=== PATIENT | male | born 1980 | race Caucasian/White ===

== ENCOUNTER → 2017-06-07 | Outpatient (CLI) | payer OTHER ==
[~2017-06-07] MED LIST: BUPR300T49 PO; CETI10TA24 PO; HYDR473S51 PO; IBUP200T64 PO; OMEP40CA6 PO; ROSU20TA PO
[2017-06-07 11:57] LABS: BASOPHILS # (AUTO) 0.04 x10^3/uL (0-0.1); BASOPHILS % (AUTO) 1 % (0-1); EOSINOPHILS # (AUTO) 0.22 x10^3/uL (0-0.4); EOSINOPHILS % (AUTO) 5 % (1-7); LYMPHOCYTES # (AUTO) 2.47 x10^3/uL (1-3.4); LYMPHOCYTES % (AUTO) 51 % (22-44); MD NO; MEAN CORPUSCULAR HEMOGLOBIN 29.5 pg (27.5-34.5); MEAN CORPUSCULAR HGB CONC 34.1 g/dL (33.2-36.2); MEAN CORPUSCULAR VOLUME 86.6 fL (81-97); MEAN PLATELET VOLUME 8.7 fL (7.4-10.4); MONOCYTES # (AUTO) 0.42 x10^3/uL (0.2-0.8); MONOCYTES % (AUTO) 9 % (2-9); NEUTROPHILS # (AUTO) 1.66 x10^3/uL (1.8-6.8); NEUTROPHILS % (AUTO) 35 % (42-75); PLATELET COUNT 191 x10^3/uL (130-400); RED BLOOD COUNT 5.21 x10^6/uL (4.38-5.82); RED CELL DISTRIBUTION WIDTH 13.5 % (9.4-14.8)
[2017-06-07 12:12] LABS: ALBUMIN 4.1 g/dL (3.4-5.0); ANION GAP 6 mmol/L (5-15); CALCIUM 8.7 mg/dL (8.5-10.1); CHLORIDE 108 mmol/L (98-107)
[2017-06-07 12:39] LABS: % IRON SATURATION 32 % (20-55); ALANINE AMINOTRANSFERASE 51 U/L (12-78); ALKALINE PHOSPHATASE 69 U/L (45-117); BILIRUBIN,TOTAL 0.7 mg/dL (0.2-1.0); CHOL/HDL RATIO 7.1; CHOLESTEROL, TOTAL 270 mg/dL (140-239); CREATININE 0.92 mg/dL (0.7-1.3); FOLATE LEVEL 18.5 ng/mL (3.1-17.5); HDL CHOL % 14 % (26-37); HDL CHOLESTEROL (DIRECT) 38 mg/dL (40-60); IRON LEVEL 108 mcg/dL (65-175); LDL CHOLESTEROL,CALCULATED 166 mg/dL (54-169); LDL/HDL RATIO 4.4 (0.5-3.0); PREALBUMIN 37.3 mg/dL (20.0-40.0); TOTAL IRON BINDING CAPACITY 335 mcg/dL (250-450); TRANSFERRIN 286 mg/dL (200-360); TRIGLYCERIDES 332 mg/dL (50-200); VLDL CHOLESTEROL 66 mg/dL (0-25)
== END | disposition home or self-care (01) ==
LOC: STAR 10:32
PROVIDERS: ATTEND Thoracic Surgery (Cardiothoracic Vascular Surgery)
DX: Z01.818 Encounter for other preprocedural examination (principal); E78.2 Mixed hyperlipidemia
CPT/HCPCS: 36415; 71020; 80053; 80061; 82306; 82607; 82728; 82746; 83540; 83550; 83970; 84134; 84425; 84466; 85025; 93005

== ENCOUNTER 2017-06-12 06:02 | Inpatient (IN) | payer OTHER ==
[~2017-06-12] VITALS: Ht 182.9 cm; Wt 127.1 kg
[~2017-06-12 06:02] MED LIST changes: -HYDR473S51 PO
[2017-06-12] MEDS ORDERED: BUPIVACAINE/PF 0.5% ONE (06:21)
[2017-06-12 06:59] VITALS: BP 132/89
[2017-06-12] MEDS ORDERED: LACTATED RINGERS 1,000 ML IV SCH ×2 (06:59→22:14)
[2017-06-12] MEDS ORDERED: FENTANYL PF 250 MCG/5ML ONE (07:20)
[2017-06-12] MEDS ORDERED: MIDAZOLAM 1 MG/ML, 2ML ONE (07:20)
[2017-06-12] MEDS ORDERED: SCOPOLAMINE PATCH, 1.5MG PATCH.TD72 TD ONE ×2 (07:20→07:30)
[2017-06-12] MEDS ORDERED: FLU VACC QS2017-18 (36MOS+) UP/PF 0.5 ML IM-VACC ONE (07:30)
[2017-06-12] MEDS ORDERED: DEXAMETHASONE 4 MG/ML, 1ML ONE ×2 (08:12)
[2017-06-12] MEDS ORDERED: ROCURONIUM 10 MG/ML,10ML ONE (08:17)
[2017-06-12] MEDS ORDERED: PROPOFOL 10 MG/ML, 20ML ONE (08:17)
[2017-06-12] MEDS ORDERED: MEPERIDINE/PF 25MG/0.5ML IVPush PRN (08:30)
[2017-06-12] MEDS ORDERED: LABETALOL 5MG/ML, 20ML IV PRN (08:30)
[2017-06-12] MEDS ORDERED: OXYcodone 5 MG/5 ML ORAL.SOL UDC PO PRN (08:30)
[2017-06-12] MEDS ORDERED: hydrALAzine 20 MG/ML, 1ML IV PRN (08:30)
[2017-06-12] MEDS ORDERED: ACETAMINOPHEN 325 MG TABLET PO PRN (08:30)
[2017-06-12] MEDS ORDERED: ONDANSETRON 2MG/ML, 2ML IVPush PRN ×2 (08:30→09:30)
[2017-06-12] MEDS ORDERED: PROMETHAZINE 25 MG/ML, 1ML IV PRN (08:30)
[2017-06-12] MEDS ORDERED: ONDANSETRON 2MG/ML, 2ML ONE ×2 (08:39)
[2017-06-12] MEDS ORDERED: HYDROmorphone 2 MG/ML, 1ML ONE (09:21)
[2017-06-12] MEDS ORDERED: FENTANYL PF 100 MCG/2ML ONE (09:21)
[2017-06-12] MEDS: FENTANYL PF 100 MCG/2ML IV PRN ×3 (09:26→10:00)
[2017-06-12] MEDS: HYDROmorphone 1 MG/ML, 1ML IV PRN ×6 (09:29→10:25)
[2017-06-12] MEDS ORDERED: PROMETHAZINE 12.5 MG SUPP PR PRN (09:30)
[2017-06-12] MEDS ORDERED: PHENOL THROAT SPRAY BOTTLE MM PRN (09:30)
[2017-06-12] MEDS ORDERED: PROMETHAZINE 25 MG/ML, 1ML IM PRN (09:30)
[2017-06-12] MEDS ORDERED: ENALAPRILAT 1.25 MG/ML, 2ML IV PRN (09:30)
[2017-06-12] MEDS ORDERED: hydrALAzine 20 MG/ML, 1ML IVPush PRN (09:30)
[2017-06-12] MEDS ORDERED: DIPHENHYDRAMINE 50 MG/ML, 1ML IV PRN (09:30)
[2017-06-12] MEDS: LACTATED RINGERS 1,000 ML IV SCH ×2 (12:19→19:24)
[2017-06-12] MEDS: FAMOTIDINE 20 MG/2 ML IVPush SCH ×2 (12:19→22:48)
[2017-06-12] MEDS: morphine SULFATE 10 MG/ML, 1ML IVPush PRN ×3 (13:16→19:50)
[2017-06-12] MEDS: LORazepam 2 MG/ML, 1ML IV PRN ×2 (13:16→19:50)
[2017-06-12 13:30] VITALS: BP 150/93
[2017-06-12] MEDS ORDERED: CEFOTETAN 2 GM ONE (16:15)
[2017-06-12 20:23] VITALS: BP 131/84
[2017-06-12] MEDS: HYDROcodone/APAP 7.5-325MG/15ML UDC PO PRN (22:49)
[2017-06-13 00:18] VITALS: BP 127/81
[2017-06-13 02:50] VITALS: BP 127/75
[2017-06-13] MEDS: HYDROcodone/APAP 7.5-325MG/15ML UDC PO PRN ×3 (02:51→10:58)
[2017-06-13 06:06] LABS: MD NO; MONOCYTES % (AUTO) 9 % (2-9)
[2017-06-13 06:29] LABS: BASOPHILS # (AUTO) 0.03 x10^3/uL (0-0.1); BASOPHILS % (AUTO) 0 % (0-1); EOSINOPHILS # (AUTO) 0.02 x10^3/uL (0-0.4); EOSINOPHILS % (AUTO) 0 % (1-7); LYMPHOCYTES # (AUTO) 2.05 x10^3/uL (1-3.4); LYMPHOCYTES % (AUTO) 23 % (22-44); MEAN CORPUSCULAR HEMOGLOBIN 29.5 pg (27.5-34.5); MEAN CORPUSCULAR HGB CONC 33.8 g/dL (33.2-36.2); MEAN CORPUSCULAR VOLUME 87.2 fL (81-97); MEAN PLATELET VOLUME 8.5 fL (7.4-10.4); MONOCYTES # (AUTO) 0.76 x10^3/uL (0.2-0.8); NEUTROPHILS % (AUTO) 68 % (42-75); PLATELET COUNT 227 x10^3/uL (130-400); RED BLOOD COUNT 5.02 x10^6/uL (4.38-5.82); RED CELL DISTRIBUTION WIDTH 12.9 % (9.4-14.8)
[2017-06-13 06:53] LABS: ALBUMIN 3.6 g/dL (3.4-5.0); ANION GAP 12 mmol/L (5-15); CALCIUM 8.6 mg/dL (8.5-10.1); CHLORIDE 103 mmol/L (98-107)
[2017-06-13 06:54] LABS: CREATININE 0.93 mg/dL (0.7-1.3)
[2017-06-13] MEDS: FAMOTIDINE 20 MG/2 ML IVPush SCH (07:47)
[2017-06-13 07:54] VITALS: BP 111/76
[2017-06-13] MEDS ORDERED: KETOROLAC 30 MG/1 ML IM PRN (09:00)
[2017-06-13 11:37] VITALS: BP 122/77
[2017-06-13] MEDS ORDERED: HYDR473S51 PO (12:07)
== END 2017-06-13 12:04 | disposition home or self-care (01) | DRG 621 ==
LOC: ORIP 06:02 → 4NOR 10:32 → DCLOUNGE 06-13 12:04
PROVIDERS: ADMIT Thoracic Surgery (Cardiothoracic Vascular Surgery); ATTEND Thoracic Surgery (Cardiothoracic Vascular Surgery)
PROC: 0DB64Z3 Excision of Stomach, Percutaneous Endoscopic Approach, Vertical (ICD-10-PCS; principal; 2017-06-12 08:00)
DX: E66.01 Morbid (severe) obesity due to excess calories (principal); E78.00 Pure hypercholesterolemia, unspecified; E78.1 Pure hyperglyceridemia; G47.30 Sleep apnea, unspecified; M54.9 Dorsalgia, unspecified; G89.29 Other chronic pain; K21.9 Gastro-esophageal reflux disease without esophagitis; K44.9 Diaphragmatic hernia without obstruction or gangrene; Z79.899 Other long term (current) drug therapy; Z79.1 Long term (current) use of non-steroidal anti-inflammatories (NSAID); Z79.2 Long term (current) use of antibiotics
CPT/HCPCS: 36415; 80048; 82040; 85025; 90686; J1100; J1170; J1885; J2250; J2405; J2704; J3010; J3490; J2060; J2270; J7120; S0028; S0074

== ENCOUNTER → 2017-09-18 | Outpatient (CLI) | payer OTHER ==
[~2017-09-18] MED LIST changes: +HYDR473S51 PO
[2017-09-18 09:16] LABS: BASOPHILS # (AUTO) 0.04 x10^3/uL (0-0.1); BASOPHILS % (AUTO) 1 % (0-1); EOSINOPHILS # (AUTO) 0.12 x10^3/uL (0-0.4); EOSINOPHILS % (AUTO) 3 % (1-7); LYMPHOCYTES # (AUTO) 2.05 x10^3/uL (1-3.4); LYMPHOCYTES % (AUTO) 49 % (22-44); MD NO; MEAN CORPUSCULAR HGB CONC 33.4 g/dL (33.2-36.2); MEAN CORPUSCULAR VOLUME 86.8 fL (81-97); MEAN PLATELET VOLUME 8.9 fL (7.4-10.4); MONOCYTES # (AUTO) 0.37 x10^3/uL (0.2-0.8); MONOCYTES % (AUTO) 9 % (2-9); NEUTROPHILS # (AUTO) 1.63 x10^3/uL (1.8-6.8); NEUTROPHILS % (AUTO) 39 % (42-75); PLATELET COUNT 233 x10^3/uL (130-400); RED BLOOD COUNT 5.26 x10^6/uL (4.38-5.82); RED CELL DISTRIBUTION WIDTH 14.5 % (9.4-14.8)
[2017-09-18 09:26] LABS: ALBUMIN 4.2 g/dL (3.4-5.0); ANION GAP 4 mmol/L (5-15); CALCIUM 9.3 mg/dL (8.5-10.1); CHLORIDE 111 mmol/L (98-107); CHOLESTEROL, TOTAL 214 mg/dL (140-239)
[2017-09-18 09:53] LABS: % IRON SATURATION 31 % (20-55); ALANINE AMINOTRANSFERASE 20 U/L (12-78); ALKALINE PHOSPHATASE 60 U/L (45-117); BILIRUBIN,TOTAL 0.9 mg/dL (0.2-1.0); CHOL/HDL RATIO 6.1; CREATININE 0.92 mg/dL (0.7-1.3); FOLATE LEVEL 8.9 ng/mL (3.1-17.5); HDL CHOL % 16 % (26-37); HDL CHOLESTEROL (DIRECT) 35 mg/dL (40-60); IRON LEVEL 91 mcg/dL (65-175); LDL CHOLESTEROL,CALCULATED 147 mg/dL (54-169); LDL/HDL RATIO 4.2 (0.5-3.0); PREALBUMIN 25.9 mg/dL (20.0-40.0); TOTAL IRON BINDING CAPACITY 295 mcg/dL (250-450); TRIGLYCERIDES 162 mg/dL (50-200); VLDL CHOLESTEROL 32 mg/dL (0-25)
== END | disposition home or self-care (01) ==
LOC: LAB 09:00
PROVIDERS: ATTEND Clinical Nurse Specialist
DX: Z00.00 Encounter for general adult medical examination without abnormal findings (principal); K90.9 Intestinal malabsorption, unspecified; E78.00 Pure hypercholesterolemia, unspecified
CPT/HCPCS: 36415; 80053; 80061; 82306; 82607; 82746; 83540; 83550; 84134; 84425; 85025

== ENCOUNTER 2017-09-20 06:06 | Day surgery (SDC) | payer OTHER ==
[~2017-09-20] VITALS: Ht 185.4 cm; Wt 98.4 kg
[2017-09-20 06:22] VITALS: BP 124/86
[2017-09-20] MEDS ORDERED: LACTATED RINGERS 1,000 ML IV SCH (06:31)
[2017-09-20] MEDS ORDERED: FENTANYL PF 100 MCG/2ML IV PRN (07:00)
[2017-09-20] MEDS ORDERED: PROMETHAZINE 12.5 MG SUPP PR PRN (07:00)
[2017-09-20] MEDS ORDERED: ACETAMINOPHEN 325 MG TABLET PO PRN (07:00)
[2017-09-20] MEDS ORDERED: MEPERIDINE/PF 25MG/0.5ML IVPush PRN (07:00)
[2017-09-20] MEDS ORDERED: LIDOCAINE-MPF 1%, 2ML INFIL ONE (07:00)
[2017-09-20] MEDS ORDERED: morphine SULFATE 10 MG/ML, 1ML IV PRN (07:00)
[2017-09-20] MEDS ORDERED: ONDANSETRON 2MG/ML, 2ML IVPush PRN (07:00)
[2017-09-20] MEDS ORDERED: LABETALOL 5MG/ML, 20ML IV PRN (07:00)
[2017-09-20] MEDS ORDERED: hydrALAzine 20 MG/ML, 1ML IV PRN (07:00)
[2017-09-20] MEDS ORDERED: OXYcodone 5 MG/5 ML ORAL.SOL UDC PO PRN (07:00)
[2017-09-20] MEDS ORDERED: MIDAZOLAM 1 MG/ML, 2ML ONE (07:04)
[2017-09-20] MEDS ORDERED: FENTANYL PF 100 MCG/2ML ONE (07:04)
[2017-09-20] MEDS ORDERED: PROPOFOL 10 MG/ML, 20ML ONE (07:20)
== END 2017-09-20 09:15 ==
LOC: OUT 06:06
PROVIDERS: ATTEND Thoracic Surgery (Cardiothoracic Vascular Surgery)
DX: K31.89 Other diseases of stomach and duodenum (principal); K21.9 Gastro-esophageal reflux disease without esophagitis; F41.9 Anxiety disorder, unspecified; F32.9 Major depressive disorder, single episode, unspecified; E78.00 Pure hypercholesterolemia, unspecified; E66.01 Morbid (severe) obesity due to excess calories; Z98.890 Other specified postprocedural states; Z90.3 Acquired absence of stomach [part of]; Z72.89 Other problems related to lifestyle
CPT/HCPCS: 43220; J2250; J2704; J3010; J3490; J7120; C1894

== ENCOUNTER 2018-02-26 07:31 | Day surgery (SDC) | payer OTHER ==
[~2018-02-26] VITALS: Ht 185.4 cm; Wt 84.3 kg
[2018-02-26] MEDS ORDERED: LACTATED RINGERS 1,000 ML IV SCH (07:49)
[2018-02-26 07:50] VITALS: BP 119/82
[2018-02-26] MEDS ORDERED: LIDOCAINE-MPF 1%, 2ML INFIL ONE (08:00)
[2018-02-26] MEDS ORDERED: OXYcodone 5 MG/5 ML ORAL.SOL UDC PO PRN (08:30)
[2018-02-26] MEDS ORDERED: ALBUTEROL SULFATE 2.5 MG/3 ML NPPB PRN (08:30)
[2018-02-26] MEDS ORDERED: LABETALOL 5MG/ML, 20ML IV PRN (08:30)
[2018-02-26] MEDS ORDERED: PROMETHAZINE 12.5 MG SUPP PR PRN (08:30)
[2018-02-26] MEDS ORDERED: METOPROLOL 1 MG/ML, 5ML IV PRN (08:30)
[2018-02-26] MEDS ORDERED: MEPERIDINE/PF 25MG/0.5ML IVPush PRN (08:30)
[2018-02-26] MEDS ORDERED: EPHEDRINE 50 MG/ML, 1ML IVPush PRN (08:30)
[2018-02-26] MEDS ORDERED: ACETAMINOPHEN 325 MG TABLET PO PRN (08:30)
[2018-02-26] MEDS ORDERED: MORPHINE SULFATE 4 MG/ML, 1ML IVPush PRN (08:30)
[2018-02-26] MEDS ORDERED: PROMETHAZINE 25 MG/ML, 1ML IM PRN (08:30)
[2018-02-26] MEDS ORDERED: KETOROLAC 30 MG/1 ML IV PRN (08:30)
[2018-02-26] MEDS ORDERED: hydrALAzine 20 MG/ML, 1ML IV PRN (08:30)
[2018-02-26] MEDS ORDERED: HYDROmorphone 1 MG/ML, 1ML IV PRN (08:30)
[2018-02-26] MEDS ORDERED: FENTANYL PF 100 MCG/2ML IV PRN (08:30)
[2018-02-26] MEDS ORDERED: MIDAZOLAM 1 MG/ML, 2ML IV PRN (08:30)
[2018-02-26] MEDS ORDERED: PROPOFOL 10 MG/ML, 50ML ONE (08:44)
== END 2018-02-26 10:25 | disposition home or self-care (01) ==
LOC: OUT 07:31
PROVIDERS: ATTEND Thoracic Surgery (Cardiothoracic Vascular Surgery)
DX: K22.2 Esophageal obstruction (principal); K31.89 Other diseases of stomach and duodenum; F41.9 Anxiety disorder, unspecified; F32.9 Major depressive disorder, single episode, unspecified; K21.9 Gastro-esophageal reflux disease without esophagitis; E78.00 Pure hypercholesterolemia, unspecified; E66.01 Morbid (severe) obesity due to excess calories; G47.30 Sleep apnea, unspecified; Z72.0 Tobacco use; Z90.3 Acquired absence of stomach [part of]; Z98.890 Other specified postprocedural states; Z79.899 Other long term (current) drug therapy; F10.21 Alcohol dependence, in remission
CPT/HCPCS: 43249; C1725; J2704; J7120

== ENCOUNTER → 2018-03-10 | Outpatient (CLI) | payer OTHER ==
[2018-03-10 17:49] LABS: BASOPHILS # (AUTO) 0.03 x10^3/uL (0-0.1); BASOPHILS % (AUTO) 1 % (0-1); EOSINOPHILS # (AUTO) 0.09 x10^3/uL (0-0.4); EOSINOPHILS % (AUTO) 2 % (1-7); LYMPHOCYTES # (AUTO) 2.49 x10^3/uL (1-3.4); LYMPHOCYTES % (AUTO) 49 % (22-44); MD NO; MEAN CORPUSCULAR HEMOGLOBIN 30.3 pg (27.5-34.5); MEAN CORPUSCULAR HGB CONC 34.2 g/dL (33.2-36.2); MEAN CORPUSCULAR VOLUME 88.5 fL (81-97); MEAN PLATELET VOLUME 8.2 fL (7.4-10.4); MONOCYTES # (AUTO) 0.29 x10^3/uL (0.2-0.8); MONOCYTES % (AUTO) 6 % (2-9); NEUTROPHILS # (AUTO) 2.17 x10^3/uL (1.8-6.8); NEUTROPHILS % (AUTO) 43 % (42-75); PLATELET COUNT 262 x10^3/uL (130-400); RED BLOOD COUNT 4.95 x10^6/uL (4.38-5.82)
[2018-03-10 17:58] LABS: ALBUMIN 4.1 g/dL (3.4-5.0); ANION GAP 8 mmol/L (5-15); CALCIUM 9.2 mg/dL (8.5-10.1); CHLORIDE 110 mmol/L (98-107); TRIGLYCERIDES 103 mg/dL (50-200); VLDL CHOLESTEROL 21 mg/dL (0-25)
[2018-03-10 18:25] LABS: % IRON SATURATION 16 % (20-55); ALANINE AMINOTRANSFERASE 22 U/L (12-78); ALKALINE PHOSPHATASE 64 U/L (45-117); BILIRUBIN,TOTAL 0.6 mg/dL (0.2-1.0); CHOL/HDL RATIO 4.5; CHOLESTEROL, TOTAL 177 mg/dL (140-239); CREATININE 1.11 mg/dL (0.7-1.3); FOLATE LEVEL 11.6 ng/mL (3.1-17.5); HDL CHOL % 22 % (26-37); HDL CHOLESTEROL (DIRECT) 39 mg/dL (40-60); IRON LEVEL 52 mcg/dL (65-175); LDL CHOLESTEROL,CALCULATED 117 mg/dL (54-169); PREALBUMIN 26.3 mg/dL (20.0-40.0); TOTAL IRON BINDING CAPACITY 335 mcg/dL (250-450); TOTAL PROTEIN 8.1 g/dL (6.4-8.2)
== END | disposition home or self-care (01) ==
LOC: LAB 17:27
PROVIDERS: ATTEND Thoracic Surgery (Cardiothoracic Vascular Surgery)
DX: E63.9 Nutritional deficiency, unspecified (principal); E56.9 Vitamin deficiency, unspecified; Z98.84 Bariatric surgery status
CPT/HCPCS: 36415; 80053; 80061; 82306; 82607; 82728; 82746; 83540; 83550; 84134; 84425; 85025